=== PATIENT | male | born 2005 | race Caucasian/White ===

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

== ENCOUNTER 2024-04-16 05:05 | Emergency (ER) | payer SELFPAY ==
[~2024-04-16] VITALS: Ht 172.7 cm; Wt 95.3 kg
[2024-04-16 05:05] VITALS: BP 141/75; PULSE 98; RESP 18; TEMP 98.9; O2SAT 97
[2024-04-16 05:26] VITALS: BP 141/75; PULSE 98; RESP 18; TEMP 98.9; O2SAT 97
== END 2024-04-16 05:26 | disposition home or self-care (01) ==
LOC: MED 05:05
DX: S50.02XA Contusion of left elbow, initial encounter (principal); S80.211A Abrasion, right knee, initial encounter; R03.0 Elevated blood-pressure reading, without diagnosis of hypertension; V89.2XXA Person injured in unspecified motor-vehicle accident, traffic, initial encounter; Y93.89 Activity, other specified; Y92.89 Other specified places as the place of occurrence of the external cause; Y99.8 Other external cause status
CPT/HCPCS: 99283